=== PATIENT | female | born 1990 | race Caucasian/White ===

== ENCOUNTER 2018-02-13 11:47 | Emergency (ER) | payer SELFPAY ==
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
[2018-02-13 15:10] LABS: T.VAGINALIS (WET MOUNT) NO TRICHOMONAS SEEN; YEAST (WET MOUNT) BUDDING YEAST SEEN
[2018-02-13 15:11] LABS: BACTERIA (WET MOUNT) 4+ BACTERIA SEEN; EPITHELIALS (WET MOUNT) 3+ EPITHELIALS SEEN; WBCS (WET MOUNT) 1+ WBCS SEEN
[2018-02-13 15:20] LABS: APPEARANCE,URINE SLIGHTLY-CLOUDY; BILIRUBIN,URINE NEGATIVE (NEGATIVE); COLOR,URINE AMBER; GLUCOSE, URINE NEGATIVE (NEGATIVE); KETONES,URINE NEGATIVE (NEGATIVE); LEUKOCYTE ESTERASE,URINE MODERATE (NEGATIVE); NITRITE,URINE POSITIVE (NEGATIVE); PROTEIN,URINE 30 mg/dL (NEGATIVE); URINE SPECIFIC GRAVITY 1.023; UROBILINOGEN,URINE NEGATIVE mg/dL (<2.0)
[2018-02-13] MEDS ORDERED: FLUCONAZOLE 100 MG TABLET PO ONE (15:45)
[2018-02-13] MEDS ORDERED: CEFTRIAXONE INJ 250 MG VIAL IM ONE (15:55)
[2018-02-13] MEDS ORDERED: LIDOCAINE 1% INJ-PF (10 MG/ML) 30 ML SDV INFIL ONE (15:55)
[2018-02-13] MEDS ORDERED: DOXYCYCLINE HYCLATE 100 MG TABLET PO ONE (15:55)
[2018-02-13] MEDS ORDERED: IBUPROFEN 800 MG TABLET PO ONE (16:08)
[2018-02-13 19:13] VITALS: BP 105/74
== END 2018-02-13 16:47 | disposition home or self-care (01) ==
LOC: ER 11:47 → EEVIPCON 11:47 → ER 16:47
DX: T74.21XA Adult sexual abuse, confirmed, initial encounter (principal); N76.0 Acute vaginitis; B96.89 Other specified bacterial agents as the cause of diseases classified elsewhere; B37.9 Candidiasis, unspecified; N39.0 Urinary tract infection, site not specified
CPT/HCPCS: 99285; 96372; 87210; 81025; 81001; J3490; J0696